=== PATIENT | male | born 1995 | race Caucasian/White ===

== ENCOUNTER 2018-01-25 12:30 | Emergency (ER) | payer BC ==
[2018-01-25 13:10] LABS: Hemoglobin 16.6 g/dL (14.0-18.0); Mean Corpuscular HGB CONC 34.7 g/dL (32.0-36.0); Mean Corpuscular Hemoglobin 30.8 pg (25.0-35.0); Mean Corpuscular Volume 88.7 fl (77.0-87.0); Mean Platelet Volume 7.8 fL (7.4-10.4); Platelet Count 163 thou/uL (130-400); RBC Distribution Width 11.3 % (11.5-14.5); White Blood Cell (WBC) Count 6.4 thou/uL (4.8-10.8)
[2018-01-25 13:30] LABS: Band 3 % (5-11); Eosinophils 1 % (0-10); Lymphocytes 42 % (28-48); MDiff Complete? YES; Monocytes 3 % (0-4); Neutrophil 48 % (31-61); RBC Morphology Normal; Reactive Lymphocytes 2 % (0-10)
[2018-01-25 13:30] LABS: ALT (SGPT) 34 U/L (8-55); AST (SGOT) 38 U/L (5-34); Alkaline Phosphatase 70 U/L (Less than 750); Anion Gap 12 mmol/L (10-20); BUN (Urea Nitrogen) 13 mg/dL (8.9-20.6); Bilirubin, Total 2.9 mg/dL (0.2-1.2); CRP (Inflammatory) Less than 0.50 mg/dL (= or < 0.5); Calc. Creatinine Clearance 0 mL/min (70-130); Calcium 10.5 mg/dL (7.8-10.44); Carbon Dioxide 29 mmol/L (22-29); Chloride 102 mmol/L (98-107); Estimated GFR-MDRD Greater than 90; Globulin 3.1 g/dL (2.4-3.5); Glucose 89 mg/dL (70-105); Potassium 4.2 mmol/L (3.5-5.1); Protein, Total 8.1 g/dL (6.0-8.3); Sodium 139 mmol/L (136-145)
[2018-01-25 13:33] LABS: CKMB 0.8 ng/mL (0-6.6); Troponin I Less than 0.010 ng/mL (< 0.028)
--- NOTE | 2018-02-13 01:26 | EKG ---
Test Reason : CHEST PAIN Blood Pressure : / mmHG Vent. Rate : 080 BPM Atrial Rate : 080 BPM P-R Int : 168 ms QRS Dur : 086 ms QT Int : 366 ms P-R-T Axes : 071 064 057 degrees QTc Int : 422 ms Normal sinus rhythm Early repolarization Normal ECG Confirmed by SHALA RIVER, PARTH ([id number]), copy editor FATOU ALVARADO ([id number]) on 02/13/2018 1:25:42 AM Referred By: SHALA Confirmed By:PARTH LAST MD
== END 2018-01-25 16:07 | disposition home or self-care (01) ==
LOC: ERS 12:30
DX: B34.9 Viral infection, unspecified (principal)
CPT/HCPCS: 80053; 82553; 84484; 85025; 85652; 86140; 93005